=== PATIENT | male | born 1950 | race Caucasian/White ===

== ENCOUNTER → 2016-12-26 | Outpatient (CLI) | payer BC ==
[~2016-12-26] VITALS: Ht 180.3 cm; Wt 84.7 kg
[~2016-12-26] MED LIST: CALC-260 PO; CHLORHEXIDINE GLUCONATE 2 % 1 PACK (2 CLOTHS) TOPICAL PRN; CYAN100 PO; DO NOT ADM ANY ANTICOAGULANT DRUGS PRN; KEPP750T PO; LACTATED RINGER'S 1000 ML IV PRN; METOPROLOL TARTRATE 25 MG TAB PO PRN; MILK175C7 PO; MINO100 PO; MULT-154 PO; NEUR600T PO; POVIDONE IODINE 5% (ANTISEPSIS KIT) 4 APPLICATIONS EACH NARE PRN; SODIUM CHLORID 0.9% 500 ML IV PRN; VITACAP7 PO
--- NOTE | 2016-12-26 10:05 | GIPROC ---
[facility] [address] [facility]. [facility], [address] EGD PROCEDURE REPORT EXAM DATE: 12/26/2016 PATIENT NAME: Erick Mcarthur MR #: [id number] BIRTHDATE: 1950 ATTENDING: Neftali Perez MD ORDER #: [id number] CUSTOMER MARKETING MANAGER: Jaxon Jaramillo and Deanne Mcgovern STATUS: outpatient INDICATIONS: The patient is a 66 yr old male here for an EGD due to history of esophageal reflux PROCEDURE PERFORMED: EGD w/ biopsy MEDICATIONS: None and Per Anesthesia. TOPICAL ANESTHETIC: CONSENT: The patient understands the risks and benefits of the procedure and understands that these risks include, but are not limited to: sedation, allergic reaction, infection, perforation and/or bleeding. Alternative means of evaluation and treatment include, among others: physical exam, x-rays, and/or surgical intervention. The patient elects to proceed with this endoscopic procedure. medical equipment was checked for proper function. Hand hygiene and appropriate measures for infection prevention was taken. After the risks, benefits and alternatives of the procedure were thoroughly explained, Informed consent was verified, confirmed and timeout was successfully executed by the treatment team. The patient was anesthetized with topical anesthesia and the EC-3490Li (Pedi C) endoscope was introduced through the mouth and advanced to the second portion of the duodenum. Retroflexed views revealed no abnormalities The gastroscope was then slowly withdrawn and removed. ESOPHAGUS: There was LA Class A esophagitis noted. STOMACH: Mild portal hypertensive gastropathy was found in the gastric fundus. There was erythematous moderate gastritis in the gastric antrum. A biopsy was performed using cold forceps. Sample sent for histology. DUODENUM: The duodenal mucosa appeared normal in the bulb and second portion of the duodenum. ADVERSE EVENTS: There were no complications. IMPRESSIONS: 1. There was LA Class A esophagitis noted 2. Portal hypertensive gastropathy was found in the gastric fundus 3. There was erythematous gastritis in the gastric antrum; biopsy was performed 4. Normal duodenal mucosa in the bulb and second portion of the duodenum 5. Retroflexed views revealed no abnormalities RECOMMENDATIONS: 1. Await biopsy results. Biopsy results will not be ready for 7-10 days. If you don't hear from us in two weeks, call our office for biopsy results. 2. Anti-reflux regimen 3. Continue PPI 4. Avoid NSAIDS PATIENT CONDITION: stable DISPOSITION: Home REPEAT EXAM: Return 1 year EGD pending biopsy results Neftali Perez MD eSigned: Neftali Perez MD 12/26/2016 10:04 AM cc: David Queen M.D. PATIENT NAME: Erick Mcarthur Silvano MR#: [id number]
--- NOTE | 2016-12-26 10:07 | GIPROC ---
[facility] [address] [facility]. [facility], [address] COLONOSCOPY PROCEDURE REPORT EXAM DATE: 12/26/2016 PATIENT NAME: Erick Mcarthur MR #: [id number] BIRTHDATE: 1950 ENDOSCOPIST: Neftali Perez MD ORDER #: [id number] FREEZER OPERATOR: Jaxon Jaarmillo and Deanne Mcgovern STATUS: outpatient INDICATIONS: The patient is a 66 yr old male here for a colonoscopy due to high risk patient with personal history of colonic polyps PROCEDURE PERFORMED: Colonoscopy, diagnostic MEDICATIONS: None and Per Anesthesia. PREP QUALITY: The Empire Bowel Prep Score was Right colon 2, Mid colon 2, and Left colon 2. Total = 6. ESTIMATED BLOOD LOSS: None CONSENT: The patient understands the risks and benefits of the procedure and understands that these risks include, but are not limited to: sedation, allergic reaction, infection, perforation and/or bleeding. Alternative means of evaluation and treatment include, among others: physical exam, x-rays, and/or surgical intervention. The patient elects to proceed with this endoscopic procedure. medical equipment was checked for proper function. Hand hygiene and appropriate measures for infection prevention was taken. After the risks, benefits and alternatives of the procedure were thoroughly explained, Informed consent was verified, confirmed and timeout was successfully executed by the treatment team. A digital exam revealed external hemorrhoids The Pentax EC-3490Li endoscope was introduced through the anus and advanced to the cecum, which was identified by both the appendix and ileocecal valve. The instrument was then slowly withdrawn as the colon was fully examined. COLON FINDINGS: Moderate diverticulosis was noted in the sigmoid colon. No bleeding was noted from the diverticulosis. Retroflexed views revealed medium internal hemorrhoids The scope was then completely withdrawn from the patient and the procedure terminated. PROCEDURE WITHDRAWAL TIME:7minutes ADVERSE EVENTS: There were no complications. IMPRESSIONS: 1. Moderate diverticulosis was noted in the sigmoid colon 2. Retroflexed views revealed medium internal hemorrhoids 3. Revealed external hemorrhoids RECOMMENDATIONS: 1. Benefiber 2 tsp daily 2. Continue surveillance 3. High fiber diet 4. No seeds, nuts and popcorn in diet RECALL: Return 5 years Colonoscopy Neftali Perez MD eSigned: Neftali Perez MD 12/26/2016 10:06 AM cc: David Queen M.D. PATIENT NAME: Erick Mcarthur MR#: [id number]
[2016-12-26 11:00] VITALS: BP 111/66; PULSE 52; RESP 20; TEMP 98; O2SAT 100
--- NOTE | 2016-12-26 19:03 | EKG ---
Date Performed: 12/26/2016 Time Performed: 09:02:41 PTAGE: 66 years EKG: SINUS BRADYCARDIA WITH FIRST DEGREE AV BLOCK Since previous tracing, no significant change noted ABNORMAL ECG PREVIOUS TRACING : 05/01/2008 07.55 DOCTOR: Gennaro Leal Interpretating Date/Time 12/26/2016 19:02:41
== END ==
LOC: HSDC 08:31
PROVIDERS: ATTEND Internal Medicine Gastroenterology
DX: Z12.11 Encounter for screening for malignant neoplasm of colon (principal); Z86.010 Personal history of colon polyps; K57.30 Diverticulosis of large intestine without perforation or abscess without bleeding; K64.8 Other hemorrhoids; K21.0 Gastro-esophageal reflux disease with esophagitis; K29.70 Gastritis, unspecified, without bleeding; F17.210 Nicotine dependence, cigarettes, uncomplicated; I34.1 Nonrheumatic mitral (valve) prolapse
CPT/HCPCS: 00810; 43239; 45378; 88305; 93005; J7120